=== PATIENT | male | born 1985 | race Caucasian/White ===

== ENCOUNTER 2018-10-16 08:00 | Emergency (ER) | payer MEDICAID, SELFPAY ==
[2018-10-16 08:04] VITALS: BP 113/70; PULSE 79; RESP 16; TEMP 37; O2SAT 98
--- NOTE | 2018-10-16 08:17 | ED.GENADUL_ITS ---
Discharge Plan Disposition Patient Disposition: HOME Condition: Stable Discharge Details Chief Complaint: Orthopedic Clinical Impression: Left ankle sprain Primary Care Provider: None,None ED Provider: Farzana Hebert Home Meds and New Rx's Prescriptions: No Action methadone 40 mg Tablet,Soluble 80 mg PO DAILY RF: 0 Discharge Instructions Instructions: Ankle Sprain (ED) Additional Instructions: Rest, ice, elevate left lower extremity is much as possible. Avoid weightbearing on your left leg as much as possible, but if need to use, use your walking boot. Use crutches as much as possible. Take Motrin or tylenol as needed and directed for pain. Follow-up with orthopedics if your symptoms do not improve or worsen. Return immediately to the emergency department if you have any acute worsening or new concerning symptoms. Referrals: Yan Burrows MD [ [facility] STAFF PHYSICIAN] - Discharge Data Discharge Date/Time-TO BE ENTERED AT DEPARTURE: 10/16/18 11:38 Discharge Physician: Farzana Hebert Medical Decision Making 32-year-old male who presents with left lower leg and foot injury after fall down 20 feet from a roof last night. No back or hip pain. Denies any injury to right leg. Vitals within normal limits. Patient has been ambulatory leaning onto her right leg. He has no tenderness to palpation of midline C/T/L-spine and no step off or c/o pain in back so I do not suspect lumbar spine fracture. There is ecchymosis to left lateral hip but he denies any left hip pain with palpation or range of motion. No head injury. No chest/abdominal injury or tenderness. There is tenderness, edema and ecchymosis extending from distal leg down to left foot. Patient has taken a total of 5600 mg of Motrin since injury yesterday afternoon. Will give a dose of Tylenol. Patient is on methadone. Will send for leg, ankle and foot x-rays. 1100 --x-rays reviewed and negative. Patient has a significant amount of edema and ecchymosis. Discussed with patient that his symptoms could be due to a severe sprain or a fracture may have been missed on xray. Discussed obtaining a CT for further evaluation but he would rather hold on CT at this time and plan to return if symptoms do not improve or worsen. Due to significant amount of edema and ecchymosis on exam and concern for severe sprain versus occult fracture, instructed to f/u with orthopedics if his symptoms do not improve or worsen. Patient instructed return here at any time if worse. Patient instructed to rest and be nonweightbearing at least for the next week and then weightbearing as tolerated. Patient states he cannot do this due to his living condition and is requesting a walking boot. Patient also has crutches. He is instructed to rest, ice, elevate and take NSAIDs as directed. Medical Records Medical records reviewed: Yes I reviewed the patient's medical records. Imaging Data Radiologic Study: Radiologist's impression: Patient Name: Christine RANDOLPH #: [id number]: ER XR Left Foot Complete, 3 or more Views FINDINGS: Bones/joints: Normal. There is no evidence of acute fracture.There is no evidence of malalignment or dislocation. Soft tissues: Normal. IMPRESSION: No acute findings. XR Left Tibia and Fibula, 2 Views FINDINGS: Bones/joints: There is no evidence of acute fracture. There is no evidence of malalignment or dislocation. Soft tissues: Normal. IMPRESSION: There is no evidence of acute fracture. There is no evidence of malalignment or dislocation. XR Left Ankle Complete, 3 or more Views FINDINGS: Bones/joints: There is no evidence of acute fracture. No dislocation. Soft tissues: Lateral malleolar soft tissue swelling. IMPRESSION: Lateral malleolar soft tissue swelling. HPI General Mode of arrival: ambulatory . Date/Time Provider Initiated Documentation: 10/16/18 08:04 . Limitations to Documentation: no limitations . Information obtained by: patient . HPI Narrative: Patient is a 32-year-old male who presents with left lower leg, ankle and foot pain after fall 20 feet down off a roof. Patient states he was shoveling snow off a roof when he slipped and fell landing primarily on his left leg. Patient states he feels like his right leg fell into the snow and the brunt of his weight went onto his left leg. Patient denies head injury, chest injury, abdominal injury, neck or back pain. Patient states he has been able to ambulate but placing weight on his right leg. Patient took 6 tabs of 800 mg Motrin between 4 PM and 1 AM yesterday as well as 800 mg of Motrin at 3 AM this morning. Patient has not taken any Tylenol. P atient is on methadone for history of IV drug abuse and did take his dose this morning. Related Data Home Medications Medication Instructions Recorded Confirmed methadone 80 mg PO DAILY 10/16/18 10/16/18 Allergies Allergy/AdvReac Type Severity Reaction Status Date / Time No Known Allergies Allergy Unverified 10/16/18 08:07 General Stated Complaint: Orthopedic AMELIA: 3 Review of Systems Review of Systems All systems reviewed & are unremarkable except as noted in HPI and below Constitutional Reports as per HPI, Denies chills and Denies fever(s) Eyes Denies blurry vision ENT Denies dizziness, Denies sore throat and Denies throat swelling Cardiovascular Denies chest pain and Denies dyspnea Respiratory Denies cough and Denies dyspnea Gastrointestinal Denies abdominal pain, Denies diarrhea and Denies vomiting Genitourinary Denies hematuria and Denies dysuria Musculoskeletal Denies back pain and Denies numbness Integumentary/Breasts Denies lesions and Denies rash Neurologic Denies dizziness, Denies focal weakness and Denies numbness Allergic/Immunologic Denies throat swelling [facility] Medical History ADHD (Acute) Surgical History History of heart surgery (Chronic) Social History Smoking/Tobacco Use Status: Current every day alcohol intake: never substance use type: former substance user and IV drugs Exam Const General: cooperative and healthy appearing Orientation: alert and awake HENMT Head: normal to inspection Ears: hearing grossly normal bilaterally and external ears normal General nose exam: external nose normal Face and sinus: normal facial exam Mouth: oral mucosae normal Throat: posterior oropharynx normal Eyes General: appearance normal, both eyes and all related structures Eyelids: eyelids normal Pupils: PERRL EOM: EOM intact bilaterally Neck Neck: normal visual inspection Lymphatic: no lymphadenopathy noted Chest Chest: normal inspection of the chest, normal palpation of entire chest wall, no crepitus and no tenderness Resp Effort & Inspection: normal respiratory effort and able to speak in complete sentences Auscultation: clear to auscultation bilaterally Cardio Rate: regular rate Rhythm: regular rhythm GI Inspection: normal to inspection and no abdominal wall ecchymosis Palpation: soft, not firm, no guarding, no hepatosplenomegaly, no masses and nontender Auscultation: normal bowel sounds Male General Exam: Yes normal external exam Scrotum: scrotum normal Testes: normal, no testicular swelling and no testicular tenderness Back/Spine/Pelvis Back: no CVA tenderness Cervical Spine: No cervical muscular tenderness and No cervical spinal tenderness Thoracic/Lumbar Spine: thoracic and lumbar spine normal to inspection, No thoracic spinal tenderness and No lumbar spinal tenderness Pelvis: no pain with anterior-posterior compression, no pain with lateral compression and no buttock tenderness Sacrum: no ecchymosis, no swelling and no tenderness Coccyx: no swelling and no tenderness Back/spine/pelvis image: 1. 2cm superficial abrasion, no tenderness, ecchymoses, edema. Skin General skin exam: no rashes or lesions noted Neuro General: alert and awake Cognition: normal cognition Speech: speech normal Gait: normal gait Motor: muscle tone normal throughout Sensory Exam: no sensory deficits noted Extrem Right upper extremity: full ROM Left upper extremity: full ROM Right lower extremity: normal to inspection, full ROM, hip/thigh Details: normal to inspection; no tenderness and no swelling, knee Details: normal to inspection and normal ROM; no tenderness and no swelling, lower leg Details: ecchymosis (1cm area of ecchymoses R anterior, no deformity, no step off), ankle Details: normal to inspection; no tenderness and no swelling and foot Details: normal to inspection and no edema; no tenderness Left lower extremity: knee Details: normal to inspection and normal ROM, lower leg (Ecchymoses/edema/tenderness mid anterolateral aspect), ankle (edema/ecchymoses/tenderness lateral malleolus) and foot (edema/ecchymoses/tenderness lateral foot ) Upper/lower leg/hip images: 1. [id number] ecchymoses to L lateral hip. NO tenderness. Normal ROM. No pain with ROM. Psych Appearance: grossly normal Mental Status: mental status grossly normal Speech and Movement: speech and movement normal Affect: normal affect Thought Process: normal Course Vital Signs Temperature 98.6 F 10/16/18 08:04 Pulse 79 10/16/18 08:04 Respiratory Rate 16 10/16/18 08:04 Blood Pressure 113/70 10/16/18 08:04 Pulse Oximetry 98 10/16/18 08:04 Temperature 98.6 F 10/16/18 08:04 Pulse 79 10/16/18 08:04 Respiratory Rate 16 10/16/18 08:04 Respiratory Effort Non-Labored 10/16/18 08:06 Blood Pressure 113/70 10/16/18 08:04 Pulse Oximetry 98 10/16/18 08:04 Oxygen Delivery Method Room Air 10/16/18 08:04 Oxygen Flow Rate 0 10/16/18 08:04 Pain Level 8 10/16/18 08:04
--- NOTE | 2018-10-16 08:32 | DI.RAD_ITS ---
SYMPTOM/DIAGNOSIS: S/P FALL FROM ROOF, R/O FX LEFT TIBIA/FIBULA: No fracture is identified. The knee and ankle are unremarkable as visualized. IMPRESSION: Negative left tibia and fibula
--- NOTE | 2018-10-16 08:32 | DI.RAD_ITS ---
SYMPTOM/DIAGNOSIS: S/P FALL FROM ROOF, R/O FX LEFT FOOT: No fracture or dislocation is seen. IMPRESSION: Negative left foot.
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
[2018-10-16] MEDS: Acetaminophen 500 MG TAB 1000 MG PO (08:41)
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
== END 2018-10-16 11:38 | disposition home or self-care (01) ==
PROVIDERS: Emergency Provider Physician Assistant
DX: S93.492A Sprain of other ligament of left ankle, initial encounter (principal); S80.12XA Contusion of left lower leg, initial encounter; S70.02XA Contusion of left hip, initial encounter; W13.2XXA Fall from, out of or through roof, initial encounter; M79.672 Pain in left foot
CPT/HCPCS: 29515; 99284; 73590; 73610; 73630; L4361

== ENCOUNTER 2020-12-23 12:41 | Emergency (ER) | payer MEDICAID, SELFPAY ==
[2020-12-23] VITALS (17 sets, daily range): BP systolic 96–135; BP diastolic 59–89; PULSE 73–134; RESP 11–20; TEMP 37; O2SAT 93–97
--- NOTE | 2020-12-23 13:00 | RT.EKG_ITS ---
APPROVED REPORT Exam: Resting ECG Patient Location: E HR:86 bpm ECG Measurements Heart Rate 86 AXIS IL 147 P 79 QRSd 85 QRS 75 QT 372 T 48 QTc 446 Conclusion Sinus rhythm...normal P axis, V-rate 60- 99
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
[2020-12-23] MEDS: Normal Saline Flush 10 ML SYR IVP (13:19)
[2020-12-23 13:27] LABS: Abs Immature Grans 0.01 10^3/uL (0.0-0.06); Absolute Basophil Count 0.02 10^3/uL (0.0-0.2); Absolute Eosinophil Count 0.05 10^3/uL (0.0-0.7); Absolute Lymphocyte Count 1.55 10^3/uL (1.2-3.4); Absolute Monocyte Count 0.48 10^3/uL (0.1-0.8); Absolute Neutrophil Count 3.32 10^3/uL (1.2-6.7); Basophils % 0.4; Eosinophils % 0.9; HCT 34.6 % (40.0-50.0); HGB 11.7 g/dL (13.5-17.5); Immature Grans % 0.2; Lymphocytes % 28.5; MCH 30.1 pg (27.0-33.0); MCHC 33.8 % (32.0-36.0); MCV 88.9 fL (80-95); MPV 9.7 fL (8.0-11.0); Monocytes % 8.8; Neutrophils % 61.2; Nucleated RBC 0 %; Platelet Count 208 10^3/uL (130-400); RBC 3.89 10^6/uL (4.36-5.78); RDW 12.1 % (11.8-14.1); RDW-SD 39.1 fL; WBC 5.43 10^3/uL (4.4-10.8)
[2020-12-23 13:46] LABS: ALT 107 U/L (16-63); AST 48 U/L (15-37); Albumin 4.1 g/dL (3.4-5.0); Alkaline Phosphatase 81 U/L (46-116); Anion Gap 10.3 mmol/L (3-11); BUN 24 mg/dL (7-18); Bilirubin, Direct 0.2 mg/dL (0.0-0.2); Bilirubin, Total 0.7 mg/dL (0.2-1.0); CO2 26.7 mmol/L (21.0-32.0); CREATININE 1.4 mg/dL (0.70-1.30); Calcium 9.2 mg/dL (8.5-10.1); Chloride 108 mmol/L (98-107); Estimated GFR 57.67 (mL/min/1.73m2); Glucose 95 mg/dL (74-106); Sodium 145 mmol/L (136-145); Total Protein 7.9 g/dL (6.4-8.2)
[2020-12-23 14:06] LABS: ETHANOL BLOOD < 3.0 mg/dL (<3); Troponin I < 0.05 ng/mL (<0.06)
--- NOTE | 2020-12-23 14:33 | NUR.NOTE ---
Referral to Care Management to establish PCP, and help with resourses getting insurance coverage.Nursing Note:
== END 2020-12-23 14:28 | disposition left against medical advice (07) ==
PROVIDERS: Emergency Provider Emergency Medicine
DX: E87.6 Hypokalemia (principal); R41.82 Altered mental status, unspecified; R74.01 Elevation of levels of liver transaminase levels; D64.9 Anemia, unspecified
CPT/HCPCS: 36415; 80053; 80307; 93005; 99284; 80320; 82248; 84484; 85025; 93010

== ENCOUNTER 2022-03-18 23:05 | Emergency (ER) | payer MEDICAID, SELFPAY ==
[2022-03-18] VITALS (29 sets, daily range): BP systolic 70–100; BP diastolic 42–68; PULSE 70–92; RESP 11–25; TEMP 36.3; O2SAT 87–100
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
[2022-03-18 23:22] LABS: Abs Immature Grans 0.02 10^3/uL (0.0-0.06); Absolute Basophil Count 0.02 10^3/uL (0.0-0.2); Absolute Eosinophil Count 0.06 10^3/uL (0.0-0.7); Absolute Lymphocyte Count 1.86 10^3/uL (1.2-3.4); Absolute Monocyte Count 0.37 10^3/uL (0.1-0.8); Absolute Neutrophil Count 2.15 10^3/uL (1.2-6.7); Basophils % 0.4; Eosinophils % 1.3; HCT 31.6 % (40.0-50.0); HGB 10.4 g/dL (13.5-17.5); Immature Grans % 0.4; Lymphocytes % 41.5; MCH 29.5 pg (27.0-33.0); MCHC 32.9 % (32.0-36.0); MCV 90 fL (80-95); MPV 9.8 fL (8.0-11.0); Monocytes % 8.3; Neutrophils % 48.1; Platelet Count 165 10^3/uL (130-400); RBC 3.53 10^6/uL (4.36-5.78); RDW 12.6 % (11.8-14.1); WBC 4.48 10^3/uL (4.4-10.8)
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
[2022-03-18] MEDS: Etomidate 20 MG/10 ML VIAL IVP ×2 (23:30→23:35)
[2022-03-18] MEDS: Succinylcholine 200 MG/10 ML VIAL 20 MG IVP ×2 (23:31→23:34)
[2022-03-18 23:40] LABS: INR 1.1 (0.9-1.1); Prothrombin Time 10.8 sec (9.3-11.0)
[2022-03-18 23:42] LABS: ALT 90 U/L (16-63); AST 66 U/L (15-37); Albumin 3.4 g/dL (3.4-5.0); Alkaline Phosphatase 64 U/L (46-116); Anion Gap 7.8 mmol/L (3-11); BUN 17 mg/dL (7-18); Bilirubin, Total 0.6 mg/dL (0.2-1.0); CO2 27.2 mmol/L (21.0-32.0); CREATININE 1.1 mg/dL (0.70-1.30); Calcium 8.5 mg/dL (8.5-10.1); Chloride 105 mmol/L (98-107); Glucose 116 mg/dL (74-106); Magnesium 1.8 mg/dL (1.8-2.4); Potassium 3.8 mmol/L (3.5-5.1); Sodium 140 mmol/L (136-145); Total Protein 6.8 g/dL (6.4-8.2)
[2022-03-18 23:43] LABS: ETHANOL BLOOD < 3.0 mg/dL (<10)
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
[2022-03-18] MEDS: MIDAZOLAM 50 MG in Normal Saline 90 ML 6 MG IV (23:56)
[2022-03-18] MEDS: fentaNYL 1,000 MCG in Normal Saline 80 ML 6.636 MCG IV (23:56)
[2022-03-18] MEDS: Omnipaque 350 MG/ML 100 ML BTL IV (23:58)
[2022-03-19] VITALS (30 sets, daily range): BP systolic 83–98; BP diastolic 50–62; PULSE 65–87; RESP 12–17; O2SAT 99–100
[2022-03-19] MEDS: Midazolam 2 MG/2 ML VIAL 4 MG IVP (00:05)
[2022-03-19] MEDS: ceFAZolin 1 GM/50 ML BAG IVPB (00:05)
[2022-03-19] MEDS: Etomidate 20 MG/10 ML VIAL IVP ×3 (00:05→01:05)
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
[2022-03-19] MEDS: Ketamine 500 MG/10 ML VIAL 70 MG IVP (01:20)
[2022-03-19] MEDS: Omnipaque 350 MG/ML 100 ML BTL IV (01:24)
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
[2022-03-19] MEDS: Normal Saline 1,000 ML 999 ML IV (02:23)
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
== END 2022-03-19 02:20 | disposition short-term general hospital (02) ==
PROVIDERS: Emergency Provider Emergency Medicine
DX: S21.132A Puncture wound without foreign body of left front wall of thorax without penetration into thoracic cavity, initial encounter (principal); R22.1 Localized swelling, mass and lump, neck; F17.210 Nicotine dependence, cigarettes, uncomplicated; W32.0XXA Accidental handgun discharge, initial encounter
CPT/HCPCS: 31500; 36556; 51702; 70498; 74177; 80053; 86850; 86900; 86901; 96361; 96365; 99291; 70450; 71045; 71260; 72125; 80320; 83735; 85025; 85610; 85730; 94002; J0690; J2250; J3010; J3490